=== PATIENT | female | born 2005 | race Caucasian/White ===

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

== ENCOUNTER 2025-05-30 14:13 | Outpatient (CLI) | payer MEDICAID ==
[~2025-05-30 14:13] MED LIST: NO HOME MEDS
--- NOTE | 2025-05-30 15:52 | RADIOLOGY REPORT ---
CLINICAL HISTORY: CHRONIC INSTABILITY OF KNEE, RIGHT KNEE TECHNIQUE: MRI of the right knee was performed without gadolinium. COMPARISON: None FINDINGS: The ACL, PCL, medial collateral ligament, and lateral ligament is complex are intact. The medial and lateral meniscal are intact. The patellar, quadriceps, and popliteal tendons are intact. The patella is appropriately located. There is no abnormal edema within the superolateral Hoffa's fat pad There is no significant cartilage loss or osteophyte formation. No dickey cyst is seen. There is trace physiologic fluid within the joint. IMPRESSION: No significant MRI abnormality of the right knee.
== END 2025-05-30 23:59 | disposition home or self-care (01) ==
LOC: MRI02 14:13
PROVIDERS: ATTEND Family Medicine
DX: M23.51 Chronic instability of knee, right knee (principal); M25.561 Pain in right knee
CPT/HCPCS: 73721